=== PATIENT | male | born 1965 | race Caucasian/White ===

== ENCOUNTER 2017-11-08 02:12 | Inpatient (IN) | payer OTHER ==
[~2017-11-08] VITALS: Ht 177.8 cm; Wt 113.4 kg
[2017-11-08 03:10] LABS: Basophils # (auto) 0 uL; Basophils % (auto) 0.4 % (0.0-2.0); Eosinophils # (auto) 0.5 uL; Eosinophils % (auto) 5.9 % (0.0-7.0); Hematocrit 46.3 % (41.0-53.0); Hemoglobin 15.7 g/dL (13.5-17.5); Lymphocytes # (auto) 1.4 uL; Mean Corpuscular Hemoglobin 30.9 pg (28.0-32.0); Mean Corpuscular Hgb Conc. 33.9 g/dL (32.0-36.0); Mean Corpuscular Volume 91.4 fL (80.0-100.0); Monocytes # (auto) 0.9 uL; Monocytes % (auto) 10.9 % (0.0-12.0); Neutrophils # (auto) 5.3 uL; Neutrophils % (auto) 65.8 % (37.0-80.0); Platelet Count (auto) 235 10^3/uL (140-450); Red Blood Cells 5.07 10^6/uL (4.5-5.90); Red Cell Distribution Width 12.9 % (11.8-14.3); White Blood Cell 8.1 10^3/uL (4.4-10.8)
[2017-11-08 03:33] LABS: Albumin 3.2 g/dL (3.4-5.0); BUN/Creatinine Ratio 22.3; Calcium 7.9 mg/dL (8.5-10.1); Magnesium 2.3 mg/dL (1.6-2.6); Potassium 3.6 mmol/L (3.5-5.1)
[2017-11-08 03:37] LABS: INR 0.93 (0.9-1.15); Partial Thromboplastin Time 30.1 sec (23.78-33.04)
[2017-11-08 03:38] LABS: Bilirubin, Total 0.4 mg/dL (0.2-1.0); Total Protein 7.2 g/dL (6.4-8.2)
[2017-11-08] MEDS ORDERED: ONDANSETRON HCL 4 MG/2 ML VIAL IV ONE (05:30)
[2017-11-08] MEDS ORDERED: MEPERIDINE HCL (50 MG/ML) 1 ML VIAL IV ONE (05:30)
[2017-11-08] MEDS ORDERED: NITROGLYCERIN 0.4 MG SL TAB SL PRN (06:00)
[2017-11-08] MEDS ORDERED: NITROGLYCERIN 2% OINT 1GM PKG TD SCH (06:00)
[2017-11-08 07:53] VITALS: BP 133/70
[2017-11-08] MEDS ORDERED: POTA10TA51 PO (08:13)
[2017-11-08] MEDS ORDERED: LISI-646 PO (08:13)
[2017-11-08] MEDS ORDERED: FURO40TA PO (08:13)
[2017-11-08] MEDS ORDERED: CARV25TA PO (08:13)
[2017-11-08] MEDS ORDERED: AMLO5TAB2 PO (08:14)
[2017-11-08] MEDS ORDERED: AZITHROMYCIN 250 MG TAB PO ONE (10:00)
[2017-11-08] MEDS ORDERED: ASPirin-EC 81 mg tab PO ONE (10:00)
[2017-11-08] MEDS ORDERED: cefTRIAXone 1GM/10ml IVPUSH 10 ML IV SCH (10:00)
[2017-11-08] MEDS ORDERED: NAPROXEN 500 MG TAB PO PRN (10:15)
[2017-11-08] MEDS ORDERED: NITROGLYCERIN 2% OINT 1GM PKG TD ONE (10:30)
[2017-11-08] MEDS: HYDROcodone-ACET 10/325MG TAB PO PRN ×2 (10:52→14:57)
[2017-11-08 12:10] VITALS: BP 148/78
[2017-11-08 16:41] VITALS: BP 136/70
[2017-11-08 21:52] VITALS: BP 142/73
[2017-11-08] MEDS ORDERED: ATORVASTATIN 20 MG TAB PO SCH (22:00)
[2017-11-09] MEDS ORDERED: METOPROLOL SUCCINATE XL 50 MG TAB PO SCH (10:00)
[2017-11-09] MEDS ORDERED: LISINOPRIL 5 MG TAB PO SCH (10:00)
== END 2017-11-08 22:43 | DRG 282 ==
LOC: ER 02:19 → EEVIPCON 02:20 → TELE 02:20 → TELE-E-ADS 07:48
PROVIDERS: ADMIT Internal Medicine; ATTEND Internal Medicine
DX: I21.4 Non-ST elevation (NSTEMI) myocardial infarction (principal); E78.00 Pure hypercholesterolemia, unspecified; F12.90 Cannabis use, unspecified, uncomplicated; I10 Essential (primary) hypertension; M79.605 Pain in left leg; M79.602 Pain in left arm; Z53.21 Procedure and treatment not carried out due to patient leaving prior to being seen by health care provider; Z82.49 Family history of ischemic heart disease and other diseases of the circulatory system; Z88.0 Allergy status to penicillin
CPT/HCPCS: 36415; 71045; 80053; 83735; 83880; 84443; 84484; 85025; 85610; 85730; 87081; 93005; 94761; 96374; 96375; J2405

== ENCOUNTER → 2018-05-21 | Outpatient (CLI) | payer OTHER ==
[~2018-05-21] MED LIST: AMLO5TAB13 PO; CARV25TA PO; FURO40TA PO; LISI-646 PO; POTA10TA51 PO
== END | disposition home or self-care (01) ==
LOC: CT 09:05
DX: M48.07 Spinal stenosis, lumbosacral region (principal); R26.2 Difficulty in walking, not elsewhere classified
CPT/HCPCS: 72131

== ENCOUNTER 2018-06-13 03:36 | Inpatient (IN) | payer OTHER | END 2018-06-14 18:30 | disposition other institution (70) | LOC: ER 03:36 → TELE 10:33 → TELE-E-ADS 16:25 | DX: I24.9 Acute ischemic heart disease, unspecified (principal) ==

== ENCOUNTER → 2018-07-09 | Outpatient (CLI) | payer OTHER | END | disposition home or self-care (01) | LOC: CT 09:47 | DX: M48.061 Spinal stenosis, lumbar region without neurogenic claudication (principal) | CPT/HCPCS: 72131 ==

== ENCOUNTER 2018-08-08 23:06 | Emergency (ER) | payer OTHER ==
[~2018-08-08] VITALS: Ht 175.3 cm; Wt 136.1 kg
[2018-08-08 23:44] LABS: Basophils # (auto) 0.1 uL; Basophils % (auto) 0.6 % (0.0-2.0); Eosinophils # (auto) 0.4 uL; Eosinophils % (auto) 4.7 % (0.0-7.0); Hematocrit 49.6 % (41.0-53.0); Hemoglobin 16.8 g/dL (13.5-17.5); Lymphocytes # (auto) 1.3 uL; Lymphocytes % (auto) 14.5 % (10.0-50.0); Mean Corpuscular Hemoglobin 30.6 pg (28.0-32.0); Mean Corpuscular Hgb Conc. 33.8 g/dL (32.0-36.0); Mean Corpuscular Volume 90.4 fL (80.0-100.0); Monocytes # (auto) 0.9 uL; Monocytes % (auto) 10.3 % (0.0-12.0); Neutrophils # (auto) 6.2 uL; Neutrophils % (auto) 69.9 % (37.0-80.0); Nucleated Red Blood Cells % 0.4 %; Platelet Count (auto) 229 10^3/uL (140-450); Red Blood Cells 5.48 10^6/uL (4.5-5.90); Red Cell Distribution Width 13.7 % (11.8-14.3); White Blood Cell 8.8 10^3/uL (4.4-10.8)
[2018-08-09 00:04] LABS: Albumin 3.3 g/dL (3.4-5.0); Calcium 8.2 mg/dL (8.5-10.1); Potassium 3.9 mmol/L (3.5-5.1)
[2018-08-09 00:05] LABS: BUN/Creatinine Ratio 16.8
[2018-08-09 00:07] LABS: Bilirubin, Total 0.4 mg/dL (0.2-1.0); Total Protein 7.8 g/dL (6.4-8.2)
[2018-08-09 01:48] VITALS: BP 152/92
[2018-08-09 02:14] LABS: Urine Bacteria NONE SEEN /hpf (None Seen); Urine Blood Negative /uL (Negative); Urine Specific Gravity 1.017 (1.001-1.035); Urine WBC 2 /hpf (0 - 3)
== END 2018-08-09 04:22 ==
LOC: EDBD 23:06 → ER 23:06
DX: S33.5XXA Sprain of ligaments of lumbar spine, initial encounter (principal); M54.16 Radiculopathy, lumbar region; E78.5 Hyperlipidemia, unspecified; I11.0 Hypertensive heart disease with heart failure; I50.9 Heart failure, unspecified; Z88.0 Allergy status to penicillin; Z79.899 Other long term (current) drug therapy; X58.XXXA Exposure to other specified factors, initial encounter; Y93.89 Activity, other specified; Y99.8 Other external cause status; Y92.148 Other place in prison as the place of occurrence of the external cause
CPT/HCPCS: 36415; 80053; 81001; 83880; 85025